=== PATIENT | female | born 1950 | race Caucasian/White ===

== ENCOUNTER → 2017-06-23 | Day surgery (SDC) | payer MEDICARE ==
[2017-06-22 13:57] LABS: BASOPHILS % 0.5 % (0.0-1.0); EOSINOPHILS # (AUTO) 0.2 (0.0-0.4); HEMATOCRIT 37.6 % (34.2-44.1); HEMOGLOBIN 12.7 g/dL (12.0-16.0); LYMPHOCYTES # (AUTO) 2.2 (1.0-3.2); LYMPHOCYTES % 25.1 % (18.0-39.1); MEAN CORPUSCULAR HEMOGLOBIN 30.2 pg (28-32); MEAN CORPUSCULAR HGB CONC 33.8 g/dL (31-35); MEAN CORPUSCULAR VOLUME 89.3 fL (81-99); MONOCYTES # (AUTO) 0.6 (0.2-0.8); MONOCYTES % 7.2 % (4.4-11.3); NEUTROPHILS # (AUTO) 5.7 (2.1-6.9); PLATELET COUNT 232 x10e3/uL (140-360); RED BLOOD COUNT 4.21 x10e6/uL (3.6-5.1); RED CELL DISTRIBUTION WIDTH 13.9 % (11.7-14.4)
[2017-06-22 14:13] LABS: ANION GAP 16.1 mmol/L (8-16); BLOOD UREA NITROGEN 18 mg/dL (7-26); BUN/CREATININE RATIO 20 (6-25); CALCIUM 10.2 mg/dL (8.4-10.2); CARBON DIOXIDE 26 mmol/L (22-29); CHLORIDE 103 mmol/L (98-107); CREATININE, SERUM 0.89 mg/dL (0.57-1.11); EST GLOMERULAR FILTRATION RATE > 60 ML/MIN (60-); GLUCOSE 116 mg/dL (74-118); POTASSIUM 4.1 mmol/L (3.5-5.1); SODIUM 141 mmol/L (136-145)
--- NOTE | 2017-06-22 14:19 | Diagnostic Imaging Report ---
PROCEDURE:CHEST 2 VIEWS TECHNIQUE:PA and lateral chest INDICATION:Preoperative evaluation for finger surgery COMPARISON:Patients [facility], , CHEST 2 VIEWS, 01/11/2016, 10:13. FINDINGS: The lungs are clear. No pleural effusions. Normal heart size for technique and age. Intact skeleton. Mild leftward tracheal deviation. CONCLUSION: Normal chest for age. Mild leftward tracheal deviation is likely secondary to patient rotation. Correlate for goiter. Dictated by: Reinier Rae M.D. on 06/22/2017 at 14:25 Electronically approved by: Reinier Rae M.D. on 06/22/2017 at 14:25
[~2017-06-23] MED LIST: ACETAMINOPHEN 1000 MG/100 ML IV ONE; ATENOLOL-CHLOR1 EACH PO; ATENOLOL50 MG PO; ATORVASTATIN CA10 MG PO; BUPIVACAINE HCL 0.5% 10ML MPF VIAL INJ ONE; CEFAZOLIN SOD 1 GM/NS 50ML 50 ML IV ONE; DEXAMETHASONE SOD PHOS INJ 4 MG/ML VIAL ONE; FENTANYL CITRATE/PF 100MCG/2 ML INJ ONE; GABAPENTIN300 MG PO; GERITOL COMPLE1 EACH PO; GLIMEPIRIDE2 MG PO; HAIR, SKIN & N1 EAC1 PO; IMIPRAMINE HCL25 MG PO; LASIX40 MG PO; LIDOCAINE HCL 2% LOCAL INJ 5 ML SDV VIAL INJ ONE; LISINOPRIL40 MG PO; METFORMIN HCL500 MG PO; MIDAZOLAM HCL 2 MG/2 ML VIAL ONE; MUPIROCIN 2% OINT 22 GM TUBE ONE; ONDANSETRON HCL INJ 2 MG/ML VIAL ONE; OXYBUTYNIN CHLOR5 MG PO; POTASSIUM CHLO20 ME1 PO; PROPOFOL IV EMULSION 10 MG/ML 20 ML VIAL ONE; SERTRALINE HCL50 MG PO; SEVOFLURANE INHAL SOLN 250 ML PEN BTL ONE; TRADJENTA5 MG PO; ULTRAM50 MG PO; VESICARE5 MG PO; WOMEN'S DAILY1 EAC2 PO; [UNRECOGNIZED DRUG - OTHER] PO
--- NOTE | 2017-06-24 05:56 | Operative Report ---
DATE OF PROCEDURE: June 23, 2017 PREOPERATIVE DIAGNOSIS 1. Stenosing tenosynovitis of left ring finger. 2. Ganglion cyst left wrist dorsum. POSTOPERATIVE DIAGNOSIS: 1. Stenosing tenosynovitis of left ring finger. 2. 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 OPERATION PERFORMED 1. Tenovaginotomy of left ring finger. 2. Excision of intratendinous ganglion left extensor indicis proprius tendon. ANESTHESIA: General. HISTORY: The patient is a 67-year-old left hand-dominant female who presents with stenosing tenosynovitis of the left ring finger that is recalcitrant to conservative treatment. The risks, benefits, and alternatives of treatment were discussed with the patient and he/she is prepared to undergo the procedure as outlined. DESCRIPTION OF PROCEDURE: The patient was brought to the operating theater. After the induction of adequate general anesthesia, the patient was prepped and draped in a supine position. An oblique incision was marked out over the A1 jovany of the left ring finger. The upper extremity was exsanguinated, and a tourniquet was inflated to a pressure of 250 mmHg. The incision was made through the skin and subcutaneous tissues. All venous tributaries were controlled with bipolar cautery. The incision was deepened through the palmar tissues. The neurovascular bundles on the radial and ulnar sides of the flexor tendon sheath were identified and retracted away from the flexor tendon sheath and preserved. The A1 jovany of the affected finger was identified and incised longitudinally, taking care to protect and preserve the flexor tendons within the sheath. After the complete length of the jovany had been transected, the tendons were placed in a range of motion. There was noted to be good motion without any locking. The wound was then copiously irrigated with bacteriostatic saline and closed with 5-0 nylon in an interrupted horizontal mattress fashion. A Marcaine field block was performed at the operative site. A transverse incision was marked out over the prominence of the mass on the dorsum of the left hand. The incision was made through the skin and subcutaneous tissues, and all venous tributaries were controlled with the bipolar cautery. Using blunt dissection, the incision was deepened through the subcutaneous tissue until the extensor tendons were identified. There was an intratendinous ganglion located in the EIP tendon of the left index finger. Using careful sharp dissection, the intratendinous ganglion was dissected from the substance of the tendon. It was sent for permanent pathologic examination. There remained a very attenuated area of tendon, and in order to prevent spontaneous rupture, the tendon was repaired using 4-0 Vicryl in an interrupted fashion. Several sutures were used. At the completion of the repair, the tendon was placed through a range of motion, and there was noted to be good gliding and no gapping or significant stress on the repair site. The wound was copiously irrigated with bacteriostatic saline and closed with a 5-0 nylon in interrupted horizontal mattress fashion. The tourniquet was deflated. All the fingers pinked up nicely, and a sterile bulky conforming bandage was applied. The patient was returned to the recovery room in satisfactory condition and was discharged with a postoperative instruction sheet as well as a followup appointment. Job#: [id number] JUAN DIEGO
== END | disposition home or self-care (01) ==
LOC: OR 05:49
PROVIDERS: ATTEND Plastic Surgery
DX: M65.342 Trigger finger, left ring finger (principal); M67.432 Ganglion, left wrist; M19.90 Unspecified osteoarthritis, unspecified site; J45.909 Unspecified asthma, uncomplicated; G47.33 Obstructive sleep apnea (adult) (pediatric); I11.0 Hypertensive heart disease with heart failure; I50.9 Heart failure, unspecified; I34.1 Nonrheumatic mitral (valve) prolapse; E66.01 Morbid (severe) obesity due to excess calories; K58.9 Irritable bowel syndrome, unspecified; K21.9 Gastro-esophageal reflux disease without esophagitis; E11.9 Type 2 diabetes mellitus without complications; D64.9 Anemia, unspecified; N28.9 Disorder of kidney and ureter, unspecified; Z01.810 Encounter for preprocedural cardiovascular examination; Z01.812 Encounter for preprocedural laboratory examination; Z01.818 Encounter for other preprocedural examination; Z86.73 Personal history of transient ischemic attack (TIA), and cerebral infarction without residual deficits
CPT/HCPCS: 25111; 26055; 36415 ×2; 71020; 80048; 82948; 85025; 88305; 93005; J1100; J2001; J2250; J2405